=== PATIENT | female | born 1995 | race Caucasian/White ===

== ENCOUNTER 2018-02-13 18:33 | Emergency (ER) | payer OTHER ==
[~2018-02-13] VITALS: Ht 160 cm; Wt 64.9 kg
[2018-02-13 18:39] VITALS: BP 121/78
[2018-02-13] MEDS ORDERED: methylPREDNISolone SOD SUCC 125 MG/2 ML VL IM ONE (21:30)
== END 2018-02-13 22:29 | disposition home or self-care (01) ==
LOC: ER 18:47
DX: M54.42 Lumbago with sciatica, left side (principal); M54.41 Lumbago with sciatica, right side; M62.838 Other muscle spasm; X50.1XXA Overexertion from prolonged static or awkward postures, initial encounter; Y93.F2 Activity, caregiving, lifting; Y92.89 Other specified places as the place of occurrence of the external cause; Y99.8 Other external cause status
CPT/HCPCS: 96372; 99283; J2930